=== PATIENT | male | born 1975 | race Caucasian/White ===

== ENCOUNTER → 2019-06-13 08:20 | Outpatient (CLI) | payer OTHER, SELFPAY ==
--- NOTE | 2019-06-13 | DI.MRI.S_ITS ---
PROCEDURE: MR LUMBAR SPINE WO CON INDICATIONS: Low back pain TECHNIQUE: Noncontrast sagittal T1 spin echo and T2 fast echo, sagittal STIR, axial T1 and T2 fast spin echo through the lumbar spine. In cases with scoliosis, additional coronal T2 fast spin echo may be performed. COMPARISON: [facility] Outside Film, RG, SPINE LUMB 2 OR 3VW, 03/01/2019, 9:47. FINDINGS: Image quality: Excellent. Alignment and Curvature: There is normal bony alignment. Bone Marrow: Marrow is of normal overall signal. Discogenic signal abnormality in the endplates at L5-S1. No acute vertebral body compression fractures. Spinal Cord: Conus medullaris terminates at the L1-L2 level. Visualized cord demonstrates normal signal and size. Paraspinous Soft Tissues: No paravertebral masses. T12-L1: No canal stenosis or foraminal stenosis. L1-L2: Normal appearance. L2-L3: Normal appearance. L3-L4: Mild disc bulge. Mild facet hypertrophy. No canal stenosis or foraminal stenosis. L4-L5: Mild facet hypertrophy. Mild disc bulge. No canal stenosis or foraminal stenosis. L5-S1: Moderate chronic disc height loss. Incidental noted made of anterior disc protrusion. Posterior annulus tear associated with disc bulge. Bilateral facet hypertrophy. No canal stenosis mild right foraminal stenosis. Moderate left foraminal stenosis with mild flattening deformity on the exiting left L5 nerve root sleeve. IMPRESSION: 1. At L5-S1, there is posterior annulus tear associated with disc bulge. There is mild right foraminal narrowing and moderate left foraminal narrowing. 2. Disc bulges and facet hypertrophy at L3-L4 through L5-S1. Dictated by: Eduardo Salazar M.D. on 06/13/2019 at 10:20 Approved by: Eduardo Salazar M.D. on 06/13/2019 at 10:30
== END ==
PROVIDERS: Referring Provider Physical Medicine & Rehabilitation Pain Medicine; Visit Provider Physical Medicine & Rehabilitation Pain Medicine
DX: M51.26 Other intervertebral disc displacement, lumbar region (principal); M51.27 Other intervertebral disc displacement, lumbosacral region; M48.07 Spinal stenosis, lumbosacral region
CPT/HCPCS: 72148